=== PATIENT | female | born 1940 | race Caucasian/White ===

== ENCOUNTER → 2017-11-01 | Outpatient (CLI) | payer OTHER, MEDICARE ==
[2017-11-01 11:57] LABS: ALANINE AMINOTRANSFERASE 42 U/L (9-52); ALBUMIN 4.1 g/dL (3.5-5.0); ALKALINE PHOSPHATASE 54 U/L (38-126); ASPARTATE AMINO TRANSFERASE 37 U/L (14-36); BILIRUBIN,DIRECT 0.3 mg/dL (0.0-0.4); BILIRUBIN,TOTAL 0.7 mg/dL (0.2-1.3)
== END ==
LOC: OD 09:40
PROVIDERS: ATTEND Physician Assistant Medical
DX: L85.3 Xerosis cutis (principal); B35.1 Tinea unguium; L30.8 Other specified dermatitis
CPT/HCPCS: 36415; 80076